=== PATIENT | female | born 1960 | race Caucasian/White ===

== ENCOUNTER 2021-07-12 17:59 | Emergency (ER) | payer SELFPAY ==
[2021-07-12] VITALS (12 sets, daily range): BP systolic 101–143; BP diastolic 78–99; PULSE 141–269; RESP 15–37; TEMP 36.7; O2SAT 93–97; BMI 40.1
--- NOTE | 2021-07-12 18:07 | EKG12_ITS ---
Test Reason : Blood Pressure : / mmHG Vent. Rate : 150 BPM Atrial Rate : 300 BPM P-R Int : 000 ms QRS Dur : 086 ms QT Int : 302 ms P-R-T Axes : 000 004 181 degrees QTc Int : 477 ms Atrial flutter Left ventricular hypertrophy with repolarization abnormality Abnormal ECG Confirmed by JODI BEAUCHAMP, BEAU ([id number]), script editor LALI BRUCE ([id number]) on 07/14/2021 7:27:08 AM Referred By: Confirmed By:ANANT ZAPATA MD
[2021-07-12] MEDS: dilTIAZem 25 MG/5 ML Vial 10 MG IV BOLUS (18:15)
[2021-07-12] MEDS: 0.9% Normal Saline 1,000 ML 1000 ML IV (18:16)
--- NOTE | 2021-07-12 18:17 | EX.ED.DYSGE1 ---
HPI History of Present Illness Chief Complaint: Palpitations Informant: patient Narrative Narrative: Patient has palpitations. The triage note says SVT but she states she was told she had atrial flutter. She had an episode in 2019. She was admitted. She does feel short of breath with a heart rate up. She had an ablation about 3 years ago. She had been on metoprolol for a while. She has been off all of those medicines. She is only on co-Q10 and vitamins. Nothing really makes symptoms better or worse. Patient states she went into the rhythm about 230 this afternoon. She felt the palpitations. She felt very mild lightheadedness. She states every time this happens there is just a heavy feeling in her arms and she had that. She is never had the chest pain with this but when her heart rate was in the high 200s she was short of breath. Shortly before this she had had a frozen drink but does not know if that initiated it. She also does have a Linq recorder in her chest but we are checking to see if we can read this. [facility] Medical History Atrial flutter SVT (supraventricular tachycardia) Allergy/AdvReac Type Severity Reaction Status Date / Time erythromycin base AdvReac Other Verified 07/12/21 18:04 [From Staticin] ethyl alcohol [From Staticin] AdvReac Other Verified 07/12/21 18:04 Surgical History History of cholecystectomy History of tonsillectomy and adenoidectomy Social History Smoking Status: Never smoker ROS ROS ED Constitutional Constitutional ED: Denies chills or fever(s) Eyes Eyes: Denies blurry vision ENT ENT ED: Denies rhinorrhea or sore throat Cardiovascular Cardiovascular: Reports palpitations and racing heartbeat; Denies chest pain Respiratory/Chest Respiratory/Chest: Reports dyspnea Gastrointestinal Gastrointestinal: Denies abdominal pain, nausea or vomiting Musculoskeletal Musculoskeletal: Denies myalgias Integumentary Denies rash Neurologic Neurologic: Denies headache(s), paresthesias or weakness Psychiatric Psychiatric: Denies anxiety or depression Endocrine Endocrinology: Denies polydipsia or polyuria Allergic/Immunologic Allergic/Immunologic ED: Denies urticaria EXAM Physical Exam Const Vital Signs: 07/12/21 23:10 07/13/21 00:04 07/13/21 01:10 Pulse Rate 149 H 147 H 151 H Respiratory Rate 18 20 H 21 H Blood Pressure 101/78 110/88 H 111/93 H Blood Pressure Mean 85 95 99 Pulse Ox 94 93 93 Oxygen Delivery Method Room Air 07/13/21 01:48 07/13/21 03:00 07/13/21 04:00 Pulse Rate 149 H 149 H 148 H Respiratory Rate 21 H 19 H 18 Blood Pressure 103/65 111/85 H 97/83 H Blood Pressure Mean 77 93 87 Pulse Ox 93 94 95 Oxygen Delivery Method Room Air Room Air Room Air 07/13/21 05:00 07/13/21 06:00 Pulse Rate 154 H 150 H Respiratory Rate 20 H 18 Blood Pressure 96/78 103/66 Blood Pressure Mean 84 78 Pulse Ox 93 93 Oxygen Delivery Method Room Air Room Air Positive well nourished and well developed General Appearance ED: well developed HEENT Reports moist mucous membranes Eyes General Eye ED: Negative for pale conjunctiva or scleral icterus Neck no JVD Chest Wall inspection of chest normal Resp normal respiratory effort and clear to auscultation bilaterally Auscultation: Negative for rales Cardio regular rhythm; Negative for regular rate Rate: tachycardic and other Other Details: Initially patient had a heart rate of about 270. With vagal maneuvers this came down to 150. It is regular at 150. I was able to run a monitor strip that shows a section where there is a about 5 beat run of what looks to be atrial flutter. I think she is having atrial flutter with variable block. GI normal to inspection, nondistended, normoactive bowel sounds and non-tender Palpation: soft Extremity normal to inspection General Extremety ED: Negative for edema or tenderness General Extremity: Negative for edema Neuro oriented x3 Sensorium / Orientation: alert; Negative for lethargic or stuporous Psych mental status grossly normal Skin no rashes or lesions noted MDM MDM MDM Narrative Medical decision making narrative: Patient is being given IV fluids. Vagal maneuvers to help bring her down a bit. We did give her a dose of 10 mg of diltiazem. She then states that she recalls diltiazem really did not help her. She was on metoprolol. We will try this at this time. Her blood pressure is good. She is not having chest pain at this time. She is actually not dyspneic now that the heart rate is down to 150. At this time I do not think we need to do cardioversion but if we cannot get any change we may need to do that as it sounds like she just went into this rhythm a short time ago. Patient has been rechecked multiple times here. She is actually been comfortable the whole time. The only time she really had symptoms when her heart rate was 270 when she first came in. This has not reoccurred. Right now her heart rate is about 140-141. Patient does have elevated troponin. This is likely demand ischemia from the extremely high heart rate earlier. Patient has a history of having a heart catheterization in about 2019 and was told that she is completely clean coronaries. 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 fib/flutter. I discussed case with our chemistry technician. We feel that this patient was likely be in need of electrophysiology which we do not have. For that reason we called [facility]. I discussed the case with Dr. Morel. He recommended starting Eliquis. We will then get her on a Cardizem drip. He recommend trying this for a few hours. If she is not getting any response we can consider cardioversion here but he is happy seeing the patient whether she is cardioverted or on the drip. He agrees she does need a higher level of care. I explained this to the patient. Overall, her blood work looks good other than the elevated troponin. Chest x-ray shows no marked acute abnormalities. I also have magnesium back which is normal. Phosphorus is pending. TSH was normal. Lab Data Attestation: I reviewed the patient's lab results. Labs: Laboratory Results - last 24 hr 07/12/21 07/12/21 07/12/21 18:10 18:10 20:11 WBC 7.8 RBC 4.90 Hgb 14.7 Hct 43.0 MCV 87.8 MCH 30.0 MCHC 34.2 RDW Std Deviation 42.3 RDW Coeff of Taniya 13.2 Plt Count 310 MPV 10.2 Immature Gran % (Auto) 0.400 Neut % (Auto) 51.2 Lymph % (Auto) 35.7 Bureau % (Auto) 8.9 Eos % (Auto) 2.8 Baso % (Auto) 1.0 Absolute Neuts (auto) 4.0 Absolute Lymphs (auto) 2.77 Nucleated RBC % 0 Sodium 137 Potassium 3.8 Chloride 104 Carbon Dioxide 27.0 Anion Gap 6 BUN 14 Creatinine 1.07 H Estim Creat Clear Calc 48.88 Est GFR (MDRD) Af Amer 67 Est GFR (MDRD) Non-Af 56 L BUN/Creatinine Ratio 13.1 Glucose 106 Calcium 9.7 Phosphorus Magnesium 2.0 Troponin I High Sens 1119 H* 1269 H* TSH 3.52 07/12/21 20:11 WBC RBC Hgb Hct MCV MCH MCHC RDW Std Deviation RDW Coeff of Taniya Plt Count MPV Immature Gran % (Auto) Neut % (Auto) Lymph % (Auto) Bureau % (Auto) Eos % (Auto) Baso % (Auto) Absolute Neuts (auto) Absolute Lymphs (auto) Nucleated RBC % Sodium Potassium Chloride Carbon Dioxide Anion Gap BUN Creatinine Estim Creat Clear Calc Est GFR (MDRD) Af Amer Est GFR (MDRD) Non-Af BUN/Creatinine Ratio Glucose Calcium Phosphorus 2.9 Magnesium Troponin I High Sens TSH Radiography Diagnostic Testing: Clinical Impression(s) from Imaging Studies Chest X-Ray 07/12/21 18:32 IMPRESSION: There are no acute findings. Electronically Signed: Eric Elise MD at 19:05 EDT Reading Location ID and State: [address] [place] [address] , Service support , Critical Care Time Critical Care Time: Yes Critical care time (excluding procedures): 30-74 minutes, Discussing w/Patient &/or Family/Property Utilization Manager, Discussing w/Consultants, Arranging Admission or Transfer, Performing Direct Patient Care at Bedside and - (Multiple rechecks, multiple meds, multiple discussions, arranging transfer) Discharge Plan Triage Chief Complaint: Palpitations ED Provider: Jayro Javier Dx/Rx/DC Orders Clinical Impression: Atrial flutter with rapid ventricular response, Elevated troponin Primary Care Provider: Care Physician,No Primary Referrals: NOT,DEFINED [NON-STAFF] - Disposition Disposition: Acute Care Hospital Discharge Location: [facility] Discharge Date/Time: 07/13/21 07:15
[2021-07-12] MEDS: Aspirin 81 MG TAB.CHEW 324 MG PO (18:20)
[2021-07-12] MEDS: Metoprolol Tartrate 5 MG/5 ML Vial IV ×3 (18:24→19:20)
[2021-07-12 18:27] LABS: Absolute Lymphocyte Count 2.77 X10^3/uL (0.83-4.51); Basophil# 0.08 X10^3/uL; Eosinophil# 0.22 X10^3/uL; Eosinophils% 2.8 % (0-5); Hemoglobin 14.7 g/dL (12.0-15.0); Lymphocyte # 2.77 X10^3/ul (0.83-4.51); Lymphocyte % 35.7 % (19-41); Mean Corp Hgb Conc 34.2 g/dL (32-36); Mean Corpuscular Volume 87.8 fL (81-99); Mean Platelet Vol. 10.2 fl (6.2-12.0); Monocyte# 0.69 X10^3/uL; Monocyte% 8.9 % (0-10); NRBC Flagged by Analyzer 0 % (0-5); Neutrophil # 3.96 X10^3/uL (2.7-7.7); Neutrophil % 51.2 % (47-70); Platelet Count 310 K/mm3 (150-450); RBC Distribution Width CV 13.2 % (11.6-14.6); RBC Distribution Width SD 42.3 fl (35.1-43.9); White Blood Count 7.8 K/mm3 (4.4-11.0)
--- NOTE | 2021-07-12 18:32 | RAD_ITS ---
STUDY: X-RAY CHEST REASON FOR EXAM: Female, 61 years old. CHEST PAIN chest pain TECHNIQUE: XR Chest 1 View COMPARISON: Prior comparison studies are not available for review at this time. FINDINGS: There is no demonstrated pleural abnormality. Loop recorder noted.There is an elevated right hemidiaphragm. There is moderate cardiac enlargement. Normal mediastinum and renee. Normal visualized pulmonary arteries. There is atherosclerotic calcification of the aortic arch with tortuosity. There are diffuse degenerative changes of the visualized thoracic spine. There is degenerative osteoarthritis of the bilateral shoulders. There is no demonstrated abnormality of the visualized soft tissue structures of the upper abdomen. RAD/Chest 1 View (Portable) IMPRESSION: There are no acute findings. Electronically Signed: Eric Elise MD at 19:05 EDT ,
[2021-07-12 19:07] LABS: Anion Gap 6 (5-15); BUN 14 mg/dL (7-18); BUN/Creat Ratio 13.1 RATIO (10-20); Calcium,Total 9.7 mg/dL (8.5-10.1); Chloride 104 mmol/L (98-107); Creatinine, Serum 1.07 mg/dL (0.55-1.02); EST Glomerular Filtration Rate 56 mL/min (>60); Est Glom Filt Rate - Afr Amer 67 mL/min (>60); Estimated Creatinine Clearance 48.88 ml/min; Glucose 106 mg/dL (74-106); Potassium 3.8 mmol/L (3.5-5.1); Sodium Level 137 mmol/L (136-145); Thyroid Stim Hormone (TSH) 3.52 uIU/mL (0.358-3.74); Troponin-I HS 1119 pg/mL (3.0-54.0)
[2021-07-12 21:37] LABS: Phosphorus 2.9 mg/dL (2.5-4.9)
[2021-07-12 21:39] LABS: Troponin-I HS 1269 pg/mL (3.0-54.0)
[2021-07-12] MEDS: APIXABAN 5 MG TABLET PO (21:54)
--- NOTE | 2021-07-12 22:14 | NURSING ---
CALLED PHYSICIANS AND WAS TOLD A 5 HOUR ETA TO [facility].
[2021-07-13] VITALS (7 sets, daily range): BP systolic 96–111; BP diastolic 65–93; PULSE 147–154; RESP 18–21; O2SAT 93–95
[2021-07-13] MEDS: Acetaminophen 500 MG Tablet 1000 MG PO (02:22)
--- NOTE | 2021-07-13 02:43 | ED.RN ---
Zarina calls and reports they are unable to get an ALS squad for this patient and gave a new ETA for [id number].
== END 2021-07-13 07:15 | disposition short-term general hospital (02) ==
PROVIDERS: Emergency Provider Emergency Medicine; Visit Provider Emergency Medicine
DX: R00.2 Palpitations (principal); I48.91 Unspecified atrial fibrillation; I48.92 Unspecified atrial flutter; I24.8 Other forms of acute ischemic heart disease; R77.8 Other specified abnormalities of plasma proteins
CPT/HCPCS: 71045; 80048; 83735; 84100; 84443; 84484; 85025; 93005; 96361; 96365; 96366; 96375; 96376; 99285; J7030; A4216

== ENCOUNTER → 2022-05-17 | Outpatient (CLI) | payer SELFPAY ==
[2022-05-17 18:56] LABS: Vitamin D,25 Hydroxy 36.1 ng/mL
== END | disposition home or self-care (01) ==
PROVIDERS: Referring Provider Family Medicine; Visit Provider Family Medicine
DX: E55.9 Vitamin D deficiency, unspecified (principal)
CPT/HCPCS: 82306